=== PATIENT | female | born 1985 | race American Indian/Alaskan Native ===

== ENCOUNTER 2021-01-23 08:55 | Emergency (ER) | payer OTHER ==
[2021-01-23] MEDS ORDERED: ASPIRIN 325 MG TAB PO ONE (09:07)
--- NOTE | 2021-01-23 09:48 | XRay Report ---
XR chest routine 2V INDICATION / CLINICAL INFORMATION: CP. COMPARISON: None available. FINDINGS: SUPPORT DEVICES: None. HEART /PULMONARY VASCULATURE: No significant abnormality. LUNGS / PLEURA: Streaky opacities in the right lung base likely reflecting volume loss. No pneumothor ax. ADDITIONAL FINDINGS: Right convex curvature of the thoracic spine. IMPRESSION: Right basilar opacity likely reflecting volume loss. Otherwise, no acute chest process. Signer Name: Ganesh Ureña MD Signed: 01/23/2021 9:44 AM Workstation Name: [id number]
[2021-01-23 09:58] LABS: Basophils % (Auto) 0.3 % (0.0-1.8); Eosinophils # (Auto) 0.2 K/mm3 (0.0-0.4); Eosinophils % (Auto) 2.3 % (0.0-4.3); Hematocrit 35.3 % (30.3-42.9); Hemoglobin 11.6 gm/dl (10.1-14.3); Lymphocytes # (Auto) 2.7 K/mm3 (1.2-5.4); Lymphocytes % (Auto) 26.7 % (13.4-35.0); Mean Corpuscular HGB Conc 33 % (30-34); Mean Corpuscular Volume 78 fl (79-97); Monocytes # (Auto) 0.6 K/mm3 (0.0-0.8); Monocytes % (Auto) 5.8 % (0.0-7.3); Platelet Count 283 K/mm3 (140-440)
[2021-01-23 10:09] LABS: Alanine Aminotransferase 10 units/L (7-56); Albumin 3.8 g/dL (3.9-5); Blood Urea Nitrogen 10 mg/dL (7-17); Calcium 9.1 mg/dL (8.4-10.2); Hemolysis Index 0
[2021-01-23 10:15] LABS: BUN/Creatinine Ratio 25
[2021-01-23] MEDS ORDERED: CYCLOBENZAPRINE 10 MG TAB PO ONE (11:05)
--- NOTE | 2021-01-23 11:10 | Emergency Department Report ---
ED General Adult HPI - General Chief complaint: Chest Pain Stated complaint: CP [id number] Time Seen by Provider: 01/23/21 10:58 Source: patient Mode of arrival: Ambulatory Limitations: No Limitations - History of Present Illness Initial comments: Patient is a 35-year-old female presents emergency room complaints of substernal chest pain that began 2 weeks ago. She states that her pain is worse with movement. States that she is been having some mild, occasional shortness of breath but has no SOB currently. She states whenever she turns over in bed she also feels the pain. She denies any fall or injury or trauma. She denies any cough, fever, nausea, vomiting, diarrhea, leg swelling. Past medical history of hypothyroidism. She has an allergy to tramadol. she denies any recent travel, recent immobilization, recent surgery, hormone use. she denies any family cardiac history. - Related Data Previous Rx's Medication Instructions Recorded Last Taken Type Naproxen [EC-Naprosyn] 500 mg PO BID PRN #20 tablet. 01/23/21 Unknown Rx methOCARBAMOL [Robaxin TAB] 500 mg PO BID PRN #20 tab 01/23/21 Unknown Rx Allergies Allergy/AdvReac Type Severity Reaction Status Date / Time tramadol AdvReac Nausea Verified 01/23/21 08:59 ED Review of Systems ROS: Stated complaint: CP [id number] Other details as noted in HPI Comment: All other systems reviewed and negative ED Past Medical Hx - Past Medical History Additional medical history: THYROID/ FIBROMALGIA - Surgical History Additional Surgical History: HERNIA/FOOT/ BREAST REDUCTION/ OVARY REMOVED - Social History Smoking Status: Never Smoker Substance Use Type: None - Medications Home Medications: Home Medications Medication Instructions Recorded Confirmed Last Taken Type Naproxen [EC-Naprosyn] 500 mg PO BID PRN #20 tablet. 01/23/21 Unknown Rx methOCARBAMOL [Robaxin TAB] 500 mg PO BID PRN #20 tab 01/23/21 Unknown Rx ED Physical Exam - General Limitations: No Limitations General appearance: alert, in no apparent distress - Head Head exam: Present: atraumatic, normocephalic - Eye Eye exam: Present: normal appearance - ENT ENT exam: Present: mucous membranes moist - Respiratory Respiratory exam: Present: normal lung sounds bilaterally, chest wall tenderness (mild mid sternal chest wall ttp, no crepitus, no deformity, no skin changes, mild discomfort in the chest with raising the arms). Absent: respiratory distress, wheezes, rales, rhonchi, stridor, accessory muscle use, decreased breath sounds, prolonged expiratory - Cardiovascular Cardiovascular Exam: Present: regular rate, normal rhythm, normal heart sounds. Absent: systolic murmur, diastolic murmur, rubs, gallop - Neurological Exam Neurological exam: Present: alert, oriented X3 - Psychiatric Psychiatric exam: Present: normal affect, normal mood - Skin Skin exam: Present: warm, dry, intact ED Course Vital Signs 01/23/21 01/23/21 09:06 14:23 Temperature 98.5 F Pulse Rate 95 H 88 Respiratory 18 18 Rate Blood Pressure 137/86 134/82 [Right] O2 Sat by Pulse 99 98 Oximetry - Reevaluation(s) Reevaluation #1: 01/23/21 13:32 I have called lab twice regarding patient's D-dimer, they report that "it is still running" ED Medical Decision Making - Lab Data Result diagrams: 01/23/21 09:24 01/23/21 09:24 Lab Results 01/23/21 01/23/21 01/23/21 Range/Units 09:24 09:24 11:50 WBC 10.0 (4.5-11.0) K/mm3 RBC 4.50 (3.65-5.03) M/mm3 Hgb 11.6 (10.1-14.3) gm/dl Hct 35.3 (30.3-42.9) % MCV 78 L (79-97) fl MCH 26 L (28-32) pg MCHC 33 (30-34) % RDW 15.0 (13.2-15.2) % Plt Count 283 (140-440) K/mm3 Lymph % (Auto) 26.7 (13.4-35.0) % Blaine % (Auto) 5.8 (0.0-7.3) % Eos % (Auto) 2.3 (0.0-4.3) % Baso % (Auto) 0.3 (0.0-1.8) % Lymph # (Auto) 2.7 (1.2-5.4) K/mm3 Blaine # (Auto) 0.6 (0.0-0.8) K/mm3 Eos # (Auto) 0.2 (0.0-0.4) K/mm3 Baso # (Auto) 0.0 (0.0-0.1) K/mm3 Seg Neutrophils % 64.9 (40.0-70.0) % Seg Neutrophils # 6.5 (1.8-7.7) K/mm3 D-Dimer (0-234) ng/mlDDU Sodium 139 (137-145) mmol/L Potassium 4.0 (3.6-5.0) mmol/L Chloride 103.0 (98-107) mmol/L Carbon Dioxide 27 (22-30) mmol/L Anion Gap 13 mmol/L BUN 10 (7-17) mg/dL Creatinine 0.4 L (0.6-1.2) mg/dL Estimated GFR > 60 ml/min BUN/Creatinine Ratio 25 % Glucose 95 (65-100) mg/dL Calcium 9.1 (8.4-10.2) mg/dL Total Bilirubin 0.70 (0.1-1.2) mg/dL AST 9 (5-40) units/L ALT 10 (7-56) units/L Alkaline Phosphatase 105 (35-129) units/L Troponin T < 0.010 < 0.010 (0.00-0.029) ng/mL Total Protein 7.7 (6.3-8.2) g/dL Albumin 3.8 L (3.9-5) g/dL Albumin/Globulin Ratio 1.0 % 01/23/21 Range/Units 11:50 WBC (4.5-11.0) K/mm3 RBC (3.65-5.03) M/mm3 Hgb (10.1-14.3) gm/dl Hct (30.3-42.9) % MCV (79-97) fl MCH (28-32) pg MCHC (30-34) % RDW (13.2-15.2) % Plt Count (140-440) K/mm3 Lymph % (Auto) (13.4-35.0) % Blaine % (Auto) (0.0-7.3) % Eos % (Auto) (0.0-4.3) % Baso % (Auto) (0.0-1.8) % Lymph # (Auto) (1.2-5.4) K/mm3 Blaine # (Auto) (0.0-0.8) K/mm3 Eos # (Auto) (0.0-0.4) K/mm3 Baso # (Auto) (0.0-0.1) K/mm3 Seg Neutrophils % (40.0-70.0) % Seg Neutrophils # (1.8-7.7) K/mm3 D-Dimer < 135.00 (0-234) ng/mlDDU Sodium (137-145) mmol/L Potassium (3.6-5.0) mmol/L Chloride (98-107) mmol/L Carbon Dioxide (22-30) mmol/L Anion Gap mmol/L BUN (7-17) mg/dL Creatinine (0.6-1.2) mg/dL Estimated GFR ml/min BUN/Creatinine Ratio % Glucose (65-100) mg/dL Calcium (8.4-10.2) mg/dL Total Bilirubin (0.1-1.2) mg/dL AST (5-40) units/L ALT (7-56) units/L Alkaline Phosphatase (35-129) units/L Troponin T (0.00-0.029) ng/mL Total Protein (6.3-8.2) g/dL Albumin (3.9-5) g/dL Albumin/Globulin Ratio % Vital Signs 01/23/21 01/23/21 09:06 14:23 Temperature 98.5 F Pulse Rate 95 H 88 Respiratory 18 18 Rate Blood Pressure 137/86 134/82 [Right] O2 Sat by Pulse 99 98 Oximetry - EKG Data EKG shows normal: sinus rhythm, axis, intervals, QRS complexes, ST-T waves Rate: normal - Radiology Data Radiology results: report reviewed Ordering Physician: RICCI GREEN MD Date of Service: 01/23/21 Procedure(s): XR chest routine 2V Accession Number(s): [id number] cc: ED MD NORMA Fluoro Time In Minutes: XR chest routine 2V INDICATION / CLINICAL INFORMATION: CP. COMPARISON: None available. FINDINGS: SUPPORT DEVICES: None. HEART /PULMONARY VASCULATURE: No significant abnormality. LUNGS / PLEURA: Streaky opacities in the right lung base likely reflecting volu me loss. No pneumothorax. ADDITIONAL FINDINGS: Right convex curvature of the thoracic spine. IMPRESSION: Right basilar opacity likely reflecting volume loss. Otherwise, no acute chest process. Signer Name: Lisha Pearson MD Signed: 01/23/2021 9:44 AM Workstation Name: [id number] Transcribed By: ALTHEA Dictated By: LISHA PEARSON MD Electronically Authenticated By: LISHA PEARSON MD Signed Date/Time: 01/23/21943 DD/ 2 TD/TT: - Medical Decision Making Patient is a 35-year-old female presents emergency room complaints of substernal chest pain that began 2 weeks ago. She states that her pain is worse with movement. States that she is been having some mild, occasional shortness of breath but has no SOB currently. She states whenever she turns over in bed she also feels the pain. She denies any fall or injury or trauma. She denies any cough, fever, nausea, vomiting, diarrhea, leg swelling. Past medical history of hypothyroidism. She has an allergy to tramadol. she denies any recent travel, recent immobilization, recent surgery, hormone use. she denies any family cardiac history. Vitals are normal, no tachycardia, no hypoxia. On exam: mild mid sternal chest wall ttp, no crepitus, no deformity, no skin changes, mild discomfort in the chest with raising the arms. EKG is within normal limits. Labs are normal. Troponin is negative x2. PERC criteria negative for PE, PE unlikely. Heart score is 1, low risk for cardiac event. Chest x-ray: Right basilar opacity likely reflecting volume loss. Otherwise, no acute chest process. Patient is not having cough, fever, no leukocytosis, do not suspect pneumonia. Symptoms appear could likely represent costochondritis versus pleuritis. Patient given prescription for medications. Advised patient Please take medication as prescribed. Follow-up with a primary care doctor. Return to emergency room for any new or worsening symptoms. Critical care attestation.: If time is entered above; I have spent that time in minutes in the direct care of this critically ill patient, excluding procedure time. ED Disposition Clinical Impression: Chest pain Qualifiers: Chest pain type: unspecified Qualified Code(s): R07.9 - Chest pain, unspecified Disposition: 01 HOME / SELF CARE / HOMELESS Is pt being admited?: No Does the pt Need Aspirin: No Condition: Stable Instructions: Nonspecific Chest Pain, Adult Additional Instructions: Please take medication as prescribed. Follow-up with a primary care doctor. Return to emergency room for any new or worsening symptoms. Prescriptions: Naproxen [EC-Naprosyn] 500 mg PO BID PRN #20 tablet. PRN Reason: pain methOCARBAMOL [Robaxin TAB] 500 mg PO BID PRN #20 tab PRN Reason: muscle spasm/pain Referrals: SIDDHARTH DELANEY MD [Staff Physician] - 2-3 Days [facility] [Provider Group] - 2-3 Days PRIMARY MD AMARJIT [Primary Care Provider] - 2-3 Days Forms: Work/School Release Form(ED) Time of Disposition: 13:44 Print Language: ARMENIAN HEART Score - HEART Score History: Slightly suspicious EKG: Normal Age: < 45 Risk factors: 1-2 risk factors Troponin: Troponin T < 0.010 ng/mL (0.00-0.029) 01/23/21 11:50 Troponin: < normal limit HEART Score: 1
--- NOTE | 2021-01-23 13:26 | Electrocardiograph Report ---
[facility] Test Date: 2021-01-23 Test Time: 09:09:03 Pat Name: LYN DREW Department: Room: Gender: F Loss Control Manager: STEVIE : 1985 Requested By: ANA ARORA Order Number: [id number] Reading MD: Nona Harris Measurements Intervals [place] Rate: 81 P: 33 LA: 177 QRS: 45 QRSD: 93 T: 29 QT: 391 QTc: 453 Interpretive Statements Sinus rhythm No previous ECG available for comparison Electronically Signed On 01-23-2021 13:26:02 EDT by Nona Harris
[2021-01-23 14:24] VITALS: BP 134/82
== END 2021-01-23 14:23 | disposition home or self-care (01) ==
LOC: ED 08:55
DX: R07.9 Chest pain, unspecified (principal); Z88.5 Allergy status to narcotic agent; E07.9 Disorder of thyroid, unspecified
CPT/HCPCS: 36415; 71046; 80053; 84484; 85025; 85379; 93005; 99284